=== PATIENT | female | born 1935 | race Caucasian/White ===

== ENCOUNTER → 2016-11-10 | Outpatient (CLI) | payer MEDICARE, OTHER ==
[~2016-11-10] MED LIST: ACETAMINOPHEN500 M1 PO; BISOPROLOL-HCT1 EACH PO; K-TAB 10MEQ10 MEQ PO; LASIX20 MG PO; VITAMIN D-32000 UNI1 PO
[2016-11-10 16:42] LABS: BASOPHIL # 0.1 K/uL (0.0-0.2); BASOPHIL % 0.6 %; EOSINOPHIL # 0.1 K/uL (0.0-0.5); EOSINOPHIL % 1.2 %; HEMATOCRIT 36.4 % (30.0-46.0); HEMOGLOBIN 11.7 g/dL (10.0-15.0); IMMATURE GRANULOCYTE % 0.4 %; LYMPHOCYTE # 2.2 K/uL (0.8-4.0); LYMPHOCYTE % 26.8 %; MCH 30.2 pg (27.0-34.0); MCHC 32.1 gm/dL (32.0-36.5); MCV 94.1 fl (83.0-98.0); MONOCYTE # 0.7 K/uL (0.0-1.0); MONOCYTE % 8.3 %; MPV 10.9 fl (9.4-12.4); NEUTROPHIL # (ANC) 5.2 K/uL (1.8-7.8); NEUTROPHIL % 62.7 %; NRBC % 0 /100WBC (0-0.00); PLATELET COUNT 275 K/uL (150-450); RBC 3.87 M/uL (3.00-5.00); RDW-CV 13.7 % (11.9-14.6); WBC 8.3 K/uL (4.0-11.0)
== END | disposition disaster alternative care site (69) ==
LOC: LGSMG 16:28
PROVIDERS: Internal Medicine
DX: M19.90 Unspecified osteoarthritis, unspecified site (principal)